=== PATIENT | male | born 1995 | race Caucasian/White ===

== ENCOUNTER 2017-01-09 12:48 | Emergency (ER) | payer OTHER ==
[2017-01-09 13:31] LABS: BASO % 0.1 % (0.2-1.2); GRAN # 11.7 10_X3_uL (1.8-5.4); GRAN % 89.4 % (34.0-67.9); HEMATOCRIT 44.6 % (40-51); HEMOGLOBIN 15.8 g/dL (13.7-17.5); LYMPH # 0.3 10_X3_uL (1.3-3.6); LYMPH % 2.6 % (21.8-53.1); MEAN CORPUSCULAR HEMOGLOBIN 31.6 pg (27.0-33.0); MEAN CORPUSCULAR HGB CONC 35.4 g/dL (32.0-36.0); MEAN CORPUSCULAR VOLUME 89.2 fL (79-92); MEAN PLATELET VOLUME 11.3 fl (7.5-11.5); MONO % 7.9 % (5.3-12.2); PLATELET COUNT 210 x10_3/uL (163-337); RED CELL DISTRIBUTION WIDTH 12.5 % (11.6-14.4); WHITE BLOOD COUNT 13.1 x10_3/uL (4.2-9.1)
[2017-01-09 13:48] LABS: ALBUMIN 4.6 gm/dL (3.4-5.0); ALKALINE PHOSPHATASE 102 U/L (50-136); ALT/SGPT 52 U/L (7.53-40.17); AMYLASE 50 U/L (15.62-74.58); AST/SGOT 26 U/L (6.66-35.34); BILIRUBIN,TOTAL 0.85 mg/dL (0.0-1.0); BLOOD UREA NITROGEN 20 mg/dL (7-18); CARBON DIOXIDE 21 mmol/L (21-32); CREATININE 0.9 mg/dL (0.6-1.3); GLUCOSE,RANDOM 107 mg/dL (70-99); LIPASE 22 U/L (6.75-60.75); POTASSIUM 4.1 mmol/L (3.5-5.1); SODIUM 138 mmol/L (136-145); TOTAL PROTEIN 7.6 gm/dL (6.4-8.2)
== END 2017-01-09 14:40 | disposition home or self-care (01) ==
LOC: EDBD 12:48 → ER 12:48
PROVIDERS: Emergency Medicine
DX: R11.2 Nausea with vomiting, unspecified (principal); R19.7 Diarrhea, unspecified; R10.13 Epigastric pain; F17.220 Nicotine dependence, chewing tobacco, uncomplicated
CPT/HCPCS: 36415; 80053; 82150; 83690; 85025; 99283